=== PATIENT | female | born 1980 | race Caucasian/White ===

== ENCOUNTER 2021-10-09 11:00 | Outpatient (RCR) | payer MEDICARE, SELFPAY ==
--- NOTE | 2021-09-07 08:40 | PTOPEVAL ---
PHYSICAL THERAPY EVALUATION AND PLAN OF CARE Thank you for referring Dolly Bliss to [facility].? The patient is scheduled to be seen for therapy? 2x/week for 4 weeks. Please review, sign, date and return this plan of care GATITO. I agree with and certify that the following plan of care is medically necessary. 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 She Query Text:As Reported By Patient/ had a cervical epidural Family several weeks ago and it is feeling a lot better. She has a new pillow and really likes it. No numbness or tingling down arms or hands. She does get some significant headaches . Since the injection she has not had any. States she had a headache from her neck about a week ago and that's it. States that she feels very weak right now and wants to get stronger. Bilateral Spine, Cervical Reported Pain Level 0 Pain Description Throbbing,Tightness Pain Frequency Acute,Continuous Greatest Pain Intensity 5 Pain Score Cervical ROM Cervical Flexion (0-60) 40 Query Text:Active in Degrees Cervical ROM Comments flexion: chins comes toward chest; significant flexion at C7-T1 and limited cervical flexion C3-C6 left rotation has a significant left lateral lean Upper Extremity Range of Motion WFL/Left,WFL/Right Posture Head/C-Spine Posture Excess Extension,Forward Head Thoracic Spine Posture Flattened,Fixed Scoliosis on ( R) Lumbar Spine Posture Increased Lordosis Scapula Posture (R) Winged Pelvis Posture Anteriorly Tilted Additional Posture Comments history of L1 burst fracture resulting in nerve damage with no innervation to bilateral calves which could be affecting her posture Palpation
--- NOTE | 2021-09-19 10:11 | PCPTNOTE ---
Patient called & cancelled scheduled appointment this date due to not feeling well.
--- NOTE | 2021-10-11 09:37 | PCPTNOTE ---
Patient called & cancelled scheduled appointment this date due to car trouble.
--- NOTE | 2021-11-02 17:13 | PCPTNOTE ---
Patient did not show up for scheduled appointment this date.
--- NOTE | 2021-11-06 11:35 | PCPTNOTE ---
PHYSICAL THERAPY DISCHARGE NOTE Patient:Dolly Bliss Date of :1980 Dolly has not returned for any further treatments since 10/09/2021, therefore she will be discharged at this time. She was participating in physical therapy to address cervical pain. Patient?s initial visit was on 09/07/2021 and had a total of 9 visits. She was meant to be seen for a follow-up appt to address low back pain; however, she did not arrive to appointment. The goals were partially met. Thank you for referring this patient to [facility]. Please review, sign, date and return this discharge summary GATITO. I have been updated about the patient's current status and I agree with discharge from the above service at this time. Referring Physician Date
== END 2021-11-07 14:39 | disposition home or self-care (01) ==
LOC: ANHPT 11:00
DX: M54.2 Cervicalgia (principal)
CPT/HCPCS: 97110; 97112; 97162; 97530